=== PATIENT | female | born 1975 | race Two or more races ===

== ENCOUNTER → 2024-08-11 | Outpatient (CLI) | payer BC ==
[2024-08-11 08:25] LABS: Anion Gap 8 (5-15); Carbon Dioxide 24 mmol/L (20-31); Chloride 110 mmol/L (98-107); Sodium 142 mmol/L (136-145)
[2024-08-11 08:26] LABS: Calcium 9.2 mg/dL (8.7-10.4)
[2024-08-11 08:30] LABS: Glucose 98 mg/dL (74-106)
[2024-08-11 08:31] LABS: BUN/Creatinine Ratio 10.7 (10.0-20.0); Blood Urea Nitrogen 8 mg/dL (9-23); LDL Cholesterol 128 mg/dL (< 100); Triglycerides 104 mg/dL (< 150)
[2024-08-11 08:33] LABS: Cholesterol 182 mg/dL (< 200); HDL Cholesterol 46 mg/dL (40-59)
== END | disposition home or self-care (01) ==
LOC: LAB 07:34
PROVIDERS: ATTEND Family Medicine
DX: E78.5 Hyperlipidemia, unspecified (principal); E87.8 Other disorders of electrolyte and fluid balance, not elsewhere classified
CPT/HCPCS: 36415; 80048; 80061